=== PATIENT | male | born 1945 | race American Indian/Alaskan Native ===

== ENCOUNTER 2016-11-26 12:03 | Outpatient (CLI) | payer MEDICARE ==
--- NOTE | 2016-11-26 14:59 | XRay Report ---
CERVICAL SPINE, 3 views: History: Cervicalgia. Findings: The vertebral bodies, disk spaces, posterior elements and prevertebral soft tissues are intact. The dens is intact. No acute fracture or malalignment is identified. Moderate degenerative disc disease with near bridging anterior osteophytes are identified at C4-5 and C5-6. Impression: Cervical spondylosis.
== END 2016-11-26 12:04 | disposition home or self-care (01) ==
LOC: SPVIMAG 12:03
DX: M47.892 Other spondylosis, cervical region (principal); M25.78 Osteophyte, vertebrae; M50.320 Other cervical disc degeneration, mid-cervical region, unspecified level
CPT/HCPCS: 72040